=== PATIENT | female | born 1995 | race Caucasian/White ===

== ENCOUNTER 2018-07-12 22:50 | Inpatient (IN) ==
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
[2018-07-13] MEDS ORDERED: Oxytocin 30 Units/500ml Premix 30 UNITS/500 ML BAG IV.SIG PRN (08:20)
[2018-07-13] MEDS ORDERED: Sertraline 50 MG Tablet PO ONE (08:25)
[2018-07-13] MEDS ORDERED: fentaNYL Citrate Inj 100 MCG/2 ML Ampul IV.PUSH PRN ×2 (08:40)
[2018-07-13] MEDS ORDERED: Naloxone Inj 0.4 MG/ML Vial IV.PUSH PRN (08:40)
[2018-07-13] MEDS ORDERED: Oxytocin 30 Units/500ml Premix 30 UNITS/500 ML BAG IV.SIG ONE (08:40)
[2018-07-13] MEDS ORDERED: Sodium Chlor 0.9% Inj 500 ML IV.SIG PRN (08:40)
[2018-07-13] MEDS ORDERED: Sod Chloride 0.9% Inj 1,000 ML IV.CONT PRN (08:40)
[2018-07-13] MEDS ORDERED: Citric Acid/Sodium Citrate Liq 30 ML UDC PO SCH (08:45)
[2018-07-13 08:51] LABS: Baso % (Auto) 0.1 % (0.0-2.0); Eos % (Auto) 0.2 % (0.0-4.0); Hematocrit 32.9 % (35.0-46.0); Hemoglobin 11.2 gm/dL (11.6-15.3); Lymph # (Auto) 1.4 th/mm3 (1.0-4.8); Lymph % (Auto) 10.8 % (9.0-44.0); Mean Corpuscular HGB Conc 33.9 % (32.0-36.0); Mean Corpuscular Hemoglobin 29.9 pg (27.0-34.0); Mean Corpuscular Volume 88.1 fL (80.0-100.0); Mean Platelet Volume 11.7 fL (7.0-11.0); Mono # (Auto) 0.6 th/mm3 (0.0-0.9); Mono % (Auto) 4.4 % (0.0-8.0); Neut # (Auto) 11.1 th/mm3 (1.8-7.7); Neut % (Auto) 84.5 % (16.0-70.0); Platelet Count 132 th/mm3 (150-450); Red Blood Count 3.74 mil/mm3 (4.00-5.30); Red Cell Distribution Width 13.4 % (11.6-17.2); White Blood Count 13.2 th/mm3 (4.0-11.0)
[2018-07-13] MEDS: Sertraline 50 MG Tablet PO SCH (12:08)
[2018-07-13] MEDS ORDERED: Azithromycin 250 MG Tablet PO ONE (15:00)
[2018-07-13] MEDS ORDERED: fentaNYL 2MCG-Bupiv 0.125% Epi 150 ML EPIDURAL ONE (23:02)
[2018-07-14] MEDS ORDERED: fentaNYL 2MCG-Bupiv 0.125% Epi 150 ML EPIDURAL PRN (00:22)
[2018-07-14] MEDS ORDERED: fentaNYL Citrate Inj 100 MCG/2 ML Ampul EPIDURAL ONE (00:22)
[2018-07-14] MEDS ORDERED: Lidocaine PF 1% Inj 5 ML Vial ONE (06:58)
[2018-07-14] MEDS ORDERED: Sodium Chlor 0.9% Inj 10 ML ONE (06:58)
[2018-07-14] MEDS ORDERED: Lidocaaine 1.5%/Epinephrine 1:200,000 PF Inj 5 ML Amp ONE (06:58)
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
--- NOTE | 2018-07-14 07:51 | P.PNPSY ---
Subjective Remarks: Patient was visited for psychiatric evaluation this morning, but she was delivering at this moment. Assessment and Plan - Plan Plan: No available for psychiatric interview at this moment. Justification for Continued Inpatient Stay: Delivering.
[2018-07-14] MEDS ORDERED: Oxytocin 30 Units/500ml Premix 30 UNITS/500 ML BAG IV.CONT PRN (07:53)
[2018-07-14] MEDS ORDERED: Bisacodyl 10 MG Supp RECTAL PRN (07:53)
[2018-07-14] MEDS ORDERED: Benzocaine 20% Top Spray 60 ML Can TOPICAL PRN (07:53)
[2018-07-14] MEDS ORDERED: Witch Hazel 50%/Glyderin 12.5% 40 Pad Jar RECTAL PRN (07:53)
[2018-07-14] MEDS ORDERED: Naloxone Inj 0.4 MG/ML Vial IV.PUSH PRN (07:53)
--- NOTE | 2018-07-14 07:53 | P.OBDELI ---
Weeks Gestation: 39 Patient Started Active Labor: Yes Medical Induction of Labor: Yes Artificial Rupture of Membrane: No Anesthesia: Epidural Episiotomy: none Vaginal Delivery: Normal Presentation: Occiput anterior Nuchal Cord: x1 Delayed Cord Clamping (45 sec): Yes Placenta: Spontaneous delivery, Intact, 3 vessel cord Laceration: None Estimated blood loss (mL): 200 Male A Infant Delivery Date: 07/14/18 Infant Delivery Time: 07:53 score (1 min): 8 score (5 min): 9 (maternal affect flat)
[2018-07-14] MEDS: Sertraline 50 MG Tablet PO SCH (09:24)
[2018-07-14] MEDS: Senna/Docusate Sodium 8.6/50 MG Tablet PO SCH ×2 (10:20→22:43)
[2018-07-14] MEDS ORDERED: Diphtheria/Tetanus/Pertussis Vaccine Inj 0.5 ML Syringe IM ONE (16:00)
[2018-07-14] MEDS ORDERED: Measles/Mumps/Rubella Vaccine Inj 0.5 ML Vial SQ ONE (16:00)
[2018-07-14] MEDS ORDERED: Zolpidem Tartrate 5 MG Tablet PO PRN (21:00)
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
[2018-07-15] MEDS: Senna/Docusate Sodium 8.6/50 MG Tablet PO SCH ×2 (08:43→22:08)
[2018-07-15] MEDS: Sertraline 50 MG Tablet PO SCH (08:43)
[2018-07-15] MEDS: Acetaminophen 325 MG Tablet PO PRN ×2 (08:43→16:33)
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
== END 2018-07-16 12:35 | disposition home or self-care (01) ==
LOC: H2E 22:50 → H1EA 07-14 10:03
PROVIDERS: ADMIT Obstetrics & Gynecology; ATTEND Obstetrics & Gynecology